=== PATIENT | male | born 1955 | race Caucasian/White ===

== ENCOUNTER 2016-08-04 10:03 | Day surgery (SDC) | payer OTHER ==
[~2016-08-04] VITALS: Ht 193 cm; Wt 111.0 kg
[2016-08-04] VITALS (10 sets, daily range): BP systolic 100–127; BP diastolic 75–89; PULSE 77–114; RESP 14–22; O2SAT 92–97
[~2016-08-04 10:03] MED LIST: DIAZ5TAB3 PO; METO-272 PO; OXYC-474 PO; RIVA20TA PO; SILD100T PO; ZOV800 PO
[2016-08-04] MEDS ORDERED: Flumazenil 0.1 mg/mL 5 mL Inj IV ONE (10:08)
[2016-08-04] MEDS ORDERED: Atropine 1 mg/10 mL (Code) Syringe ONE (10:08)
[2016-08-04] MEDS ORDERED: Methohexital 10 mg/mL 50 mL Inj ONE (10:08)
[2016-08-04] MEDS ORDERED: 0.9% Sodium Chloride 1,000 ML ONE (10:08)
--- NOTE | 2016-08-04 12:04 | NUR ---
Admit/Procedure/Discharge Admitted to [facility] at 1000. VSS. Tele Afib in 90's-100's with PVCs. States Chronic neck pain a tolerable 5/10. IV started. See EMR for further info and assessment. Procedure commenced at 1105. Total of Versed 1mg IV and Brevital 90mg IV in divided doses, see INTRA flow sheet. Shocked x2 150J did not achieve SR so repeated at 200J and converted to SR. Awake by 1120 and back to baseline by 1145. Taking po well and states feels well. Discharge instructions given, see sheets. Verbalizes understanding. IV discontinued intact. 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
--- NOTE | 2016-08-05 07:08 | OUT PROC ---
[address] [address] PROCEDURE NOTE PATIENT: MAINOR LITTLEJOHN : 1955 MR#: [id number] ADMIT: 08/04/2016 JOB ID: [id number] DATE OF PROCEDURE: 08/04/2016 PROCEDURE: Cardioversion. INDICATION: Atrial fibrillation. CONSENT: The patient was explained the risks, benefits, and alternatives of the procedure. Informed signed consent was obtained and placed in the chart. PREPROCEDURAL SEDATION: The patient was given 1 mg of Versed and 80 mg of Brevital intravenously. DESCRIPTION OF PROCEDURE: The patient was brought to the procedure room and two IV lines were established. Defibrillation pads were placed on the anterior and posterior chest wall. After making sure the patient was in deep conscious sedation, 150 joules of synchronized DC current was administered. The patient did not convert to sinus rhythm. After maintaining his deep conscious sedation, 200 joules of synchronized DC current was administered. The patient converted to sinus rhythm and maintained sinus rhythm. Postprocedure rhythm strip demonstrated normal sinus rhythm. IMPRESSION: Successful direct current cardioversion. PATIENT INSTRUCTIONS: The patient is to continue with metoprolol and Xarelto for another four weeks. He is advised to follow up with me in the office in one week's time. The patient is instructed to call should there be any other symptoms or complications.
== END 2016-08-04 23:59 | disposition home or self-care (01) ==
LOC: SOUO 10:03
PROVIDERS: ATTEND Internal Medicine Cardiovascular Disease
DX: I48.1 Persistent atrial fibrillation (principal); Z79.01 Long term (current) use of anticoagulants; G47.30 Sleep apnea, unspecified; I10 Essential (primary) hypertension
CPT/HCPCS: 92960; 93005; 99152; J2250; J7030